=== PATIENT | male | born 1985 ===

== ENCOUNTER 2025-04-15 22:20 | Emergency (ER) | payer BC ==
[2025-04-15 22:44] LABS: BASOPHILS ABSOLUTE AUTO 0.06 K/uL (0.00-0.20); BASOPHILS PERCENT AUTO 0.5 % (0.0-1.0); EOSINOPHILS ABSOLUTE AUTO 0.38 K/uL (0.00-0.45); HEMATOCRIT 42.9 % (42.0-52.0); HEMOGLOBIN 14.9 g/dL (14.0-18.0); IMMATURE GRAN ABSOLUTE AUTO 0.06 K/uL (0.00-0.05); IMMATURE GRAN PERCENT AUTO 0.5 % (0.0-0.4); LYMPHOCYTES ABSOLUTE AUTO 3.36 K/uL (1.00-4.80); LYMPHOCYTES PERCENT AUTO 26.9 % (24.0-44.0); MEAN CORPUSCULAR HGB CONC 34.7 g/dL (32.0-36.0); MEAN CORPUSCULAR VOLUME 89.4 fL (83.0-99.0); MEAN PLATELET VOLUME 8.1 fL (9.4-12.4); MONOCYTES ABSOLUTE AUTO 0.69 K/uL (0.00-0.80); MONOCYTES PERCENT AUTO 5.5 % (0.0-8.0); NEUTROPHILS ABSOLUTE AUTO 7.92 K/uL (1.80-7.70); NEUTROPHILS PERCENT AUTO 63.6 % (41.0-71.0); PLATELET COUNT,PLT 335 K/uL (150-400); WHITE BLOOD CELL COUNT,WBC 12.47 K/uL (3.9-11.3)
[2025-04-15 23:03] LABS: ALBUMIN 3.9 g/dL (3.4-5.0); BILIRUBIN TOTAL 0.3 mg/dL (0.2-1.0); CALCIUM 8.2 mg/dL (8.5-10.1); CREATININE 1.1 mg/dL (0.8-1.3); EST CRCL DRUG DOSING (CG) 79.75 mL/min; POTASSIUM,K 3.5 mmol/L (3.5-5.1); PROTEIN TOTAL,TP 7.7 g/dL (6.4-8.2)
[2025-04-15] MEDS: Ondansetron 4 MG/2 ML SDV IVPUSH ONE (23:22)
[2025-04-15] MEDS: Sodium Chloride 0.9% 1,000 ML IV ONE (23:22)
[2025-04-15] MEDS: HYDROmorphone 0.5 MG/0.5 ML Syringe IVPUSH ONE (23:23)
[2025-04-15] MEDS: Iopamidol 755 Mg/ML 100 ML Bottle IVPUSH ONE (23:47)
[2025-04-16] MEDS ORDERED: Morphine 4 MG/ML Syringe IM ONE (00:17)
[2025-04-16] MEDS: Morphine 4 MG/ML Syringe IVPUSH ONE (00:31)
[2025-04-16] MEDS: Ketorolac 30 MG/ML SDV IVPUSH ONE (00:31)
[2025-04-16] MEDS: droPERidol 2.5 MG/ML SDV IVPUSH ONE ×2 (01:15→01:55)
[2025-04-16] MEDS: Morphine 2 MG/ML SYRINGE IVPUSH ONE (01:18)
[2025-04-16] MEDS: Acetaminophen/HYDROcodone 325-10 MG Tab PO ONE (01:55)
== END 2025-04-16 03:00 | disposition home or self-care (01) ==
LOC: MW.ED 22:20
DX: S60.211A Contusion of right wrist, initial encounter (principal); S30.1XXA Contusion of abdominal wall, initial encounter; S00.83XA Contusion of other part of head, initial encounter; S20.212A Contusion of left front wall of thorax, initial encounter; X58.XXXA Exposure to other specified factors, initial encounter
CPT/HCPCS: 36415; 70450; 71260; 72125; 73110; 73130; 74177; 80053; 85025; 96374; 96375; 96376; 99285; A9270; J1790; J1885; J2270; J2405; J7030; Q9967; 99284; J1171